=== PATIENT | female | born 1970 | race Caucasian/White ===

== ENCOUNTER 2017-03-24 09:06 | Emergency (ER) | payer OTHER ==
[~2017-03-24] VITALS: Ht 162.6 cm; Wt 63.5 kg
[2017-03-24] MEDS ORDERED: AUGMENTIN 875875 MG PO (09:55)
[2017-03-24] MEDS ORDERED: ANTIVERT25 MG PO (09:55)
[2017-03-24 10:18] LABS: ABSOLUTE NEUTROPHILS 4.1 thou/uL (1.4-8.2); BASOPHILS 0.6 % (0.0-2.0); EOSINOPHILS 0.8 % (0.0-3.0); HEMATOCRIT 41.4 % (37.0-47.0); HEMOGLOBIN 14.7 gm/dL (12.0-15.0); MCH 32.2 pg (26.0-34.0); MCHC 35.5 g/dL (28.0-37.0); MCV 90.8 fL (80.0-100.0); MONOCYTES 5.7 % (1.0-8.0); PLATELET COUNT 313 thou/uL (150-400); POLYS 57.9 % (36.0-66.0); RBC 4.57 mil/uL (4.20-5.00); RDW 12.7 % (10.5-14.5); WBC 7.1 thou/uL (4.0-11.0)
[2017-03-24 10:19] LABS: MANUAL DIFF NO
[2017-03-24 10:24] LABS: CREATININE 0.8 mg/dL (0.6-1.0)
[2017-03-24 10:31] LABS: ALBUMIN 3.9 g/dL (3.4-5.0); DIRECT BILIRUBIN 0.2 mg/dL (<0.1-0.3); TOTAL BILIRUBIN 0.8 mg/dL (<0.1-1.0); TOTAL PROTEIN 7.2 g/dL (6.4-8.2)
[2017-03-24] MEDS ORDERED: NORCO 5-325 TA1 EACH PO (13:24)
[2017-03-24] MEDS ORDERED: LEVSIN0.125 MG PO (13:24)
[2017-03-24 13:46] VITALS: BP 99/56
== END 2017-03-24 13:47 | disposition home or self-care (01) ==
LOC: ER 09:06
PROVIDERS: Emergency Medicine
DX: R10.31 Right lower quadrant pain (principal); R11.2 Nausea with vomiting, unspecified; F17.210 Nicotine dependence, cigarettes, uncomplicated